=== PATIENT | female | born 1965 | race Caucasian/White ===

== ENCOUNTER 2017-02-06 08:10 | Emergency (ER) | payer BC, OTHER ==
[~2017-02-06] VITALS: Ht 170.2 cm; Wt 91.0 kg
[~2017-02-06 08:10] MED LIST: LEXA20TA PO; PYRI200T4 PO; SULF1TAB47 PO
[2017-02-06 08:14] VITALS: BP 139/86; PULSE 89; RESP 16; TEMP 97.8; O2SAT 99
[2017-02-06] MEDS ORDERED: LEVO.15 PO (08:26)
[2017-02-06] MEDS ORDERED: BUPR4MIS SL (08:26)
--- NOTE | 2017-02-06 08:29 | PD ---
HPI Chief Complaint: Musculoskeletal Complaint Time Seen by Provider: 08:20 Travel History International Travel<30 days: No Contact w/Intl Traveler<30days: No Traveled to known affect area: No History of Present Illness HPI Patient is a 51 year old female who presents to ER with c/o of right sided knee pain. Patient reports that her right knee always "pop's in and pops out." Patient reports that she was walking yesterday and reports that she heard something "pop" in my right knee. Patient reports that she has been unable to ambulate since 3pm last night. Denies any fall/trauma to knee. Reports that she has never really had her knee looked at by a physician. PFSH Past Medical History Diminished Hearing: No Thyroid Disease: Yes Influenza Vaccination: No ?: Not LMP: 1 week ago Menopausal: Yes Past Surgical History Cholecystectomy: Yes (1999) Hysterectomy: Yes (partial but states get menses) Social History Alcohol Use: No Tobacco Use: No Substance Use: No Allergies-Medications (Allergen,Severity, Reaction): Coded Allergies: Tetracycline (Verified Allergy, Mild, 02/06/17) Reported Meds & Prescriptions Reported Meds & Active Scripts Active Reported Synthroid (Levothyroxine Sodium) 150 Mcg Tab 150 Mcg PO DAILY Suboxone Sublingual Film (Buprenorphine-Naloxone Sublingual Film) 4-1 Mg Film 1 Film SL DAILY Unique ID number required: Review of Systems General / Constitutional: No: Fever Eyes: No: Visual changes HENT: No: Headaches Cardiovascular: No: Chest Pain or Discomfort Respiratory: No: Shortness of Breath Gastrointestinal: No: Abdominal Pain Genitourinary: No: Dysuria Musculoskeletal: Positive: Limited ROM (right knee), Pain (right knee) Skin: No Rash Neurologic: No: Weakness Psychiatric: No: Depression Endocrine: No: Polydipsia Hematologic/Lymphatic: No: Easy Bruising Physical Exam Narrative GENERAL: mild distress SKIN: Focused skin assessment warm/dry. HEAD: Atraumatic. Normocephalic. EYES: Pupils equal and round. No scleral icterus. No injection or drainage. ENT: No nasal bleeding or discharge. Mucous membranes pink and moist. NECK: Trachea midline. No JVD. CARDIOVASCULAR: Regular rate and rhythm. No murmur appreciated. RESPIRATORY: No accessory muscle use. Clear to auscultation. Breath sounds equal bilaterally. GASTROINTESTINAL: Abdomen soft, non-tender, nondistended. Hepatic and splenic margins not palpable. MUSCULOSKELETAL: No obvious deformities. No clubbing. No cyanosis. Patient with normal rom to lle, patient with normal rom to right hip/ankle, patient unable to ROM right knee - there is no obvious deformities or open fracture, pulses intact, neurovascularly intact NEUROLOGICAL: Awake and alert. No obvious cranial nerve deficits. Motor grossly within normal limits. Normal speech. PSYCHIATRIC: Appropriate mood and affect; insight and judgment normal. Data Data Last Documented VS Vital Signs Date Time Temp Pulse Resp B/P Pulse Ox O2 Delivery O2 Flow Rate FiO2 02/06/17 08:14 97.8 89 16 139/86 99 Orders Knee, Complete (4vws) (02/06/17 ) Oxycodone-Acetamin 5-325 Mg (Percocet (02/06/17 08:30) MDM Medical Decision Making Medical Screen Exam Complete: Yes Emergency Medical Condition: Yes Interpretation(s) Vital Signs Date Time Temp Pulse Resp B/P Pulse Ox O2 Delivery O2 Flow Rate FiO2 02/06/17 08:14 97.8 89 16 139/86 99 Differential Diagnosis Knee dislocation, knee strain Narrative Course 51-year-old female who presents to emergency room with complaints of right- sided knee pain since 3 PM yesterday. Patient reports history of dislocation and subsequent relocation by itself in the past, reports that she was walking yesterday and began to have pain to her right knee yesterday after she heard a pop. On evaluation, patient unable to range of motion her right knee. X-ray of her knee ordered. X-ray of the knee shows mild osteoarthritis without fracture and with soft tissue swelling. Patient will follow-up with orthopedic surgery and return to emergency room as needed. Encouraged rest, ice, elevation. Diagnosis Primary Impression: Osteoarthritis of right knee Qualified Code: M17.11 - Primary osteoarthritis of right knee Additional Impression: Knee pain, right Qualified Code: M25.561 - Acute pain of right knee Referrals: Brandan Cristobal MD Patient Instructions: Narcotic given in the ED, General Instructions Additional Instructions: Please follow-up with your orthopedic surgeon Return to the emergency room as needed Rest, ice, elevate your right lower extremity Med/Other Pt SpecificInfo: Prescription(s) given Scripts Tramadol 50 Mg Tab50 Mg PO Q6H PRN (PAIN) #10 TAB Ref 0 Prov:Sylvia Hamilton DO 02/06/17 Disposition: 01 DISCHARGE HOME Condition: Stable Sylvia Hamilton DO February 06, 2017 08:29
[2017-02-06] MEDS ORDERED: oxyCODONE/ACETAMINOPHEN 5 MG/325 MG TAB PO ONE (08:30)
--- NOTE | 2017-02-06 09:01 | RADHPO ---
EXAM DATE/TIME: 02/06/2017 08:32 [facility] COMPARISON: No previous studies available for comparison. INDICATIONS : Right knee pain, no known injury. Patient has had problems since she was a child with her right knee popping. MEDICAL HISTORY : None. SURGICAL HISTORY : None. ENCOUNTER: Initial ACUITY: 2 days PAIN SCORE: 10/10 LOCATION: Right knee FINDINGS: Four view examination of the right knee demonstrates no evidence of fracture or dislocation. Bony mi neralization is normal. The articular surfaces are intact. There is mild soft tissue swelling. Mild osteoarthritis. CONCLUSION: 1. Mild osteoarthritis without fracture. 2. Soft tissue swelling. Dada Wells MD on February 06, 2017 at 8:59 Board Certified Radiologist. This report was verified electronically.
[2017-02-06] MEDS ORDERED: TRAM50TA PO (09:09)
[2017-02-18] MEDS ORDERED: OMEP40CA2 PO (12:23)
[2017-02-18] MEDS ORDERED: ACET325T PO (12:23)
== END 2017-02-06 09:23 | disposition home or self-care (01) ==
LOC: PHED 08:10
DX: M17.11 Unilateral primary osteoarthritis, right knee (principal); E07.9 Disorder of thyroid, unspecified; Z79.899 Other long term (current) drug therapy
CPT/HCPCS: 73564; 99283

== ENCOUNTER → 2017-02-18 | Outpatient (CLI) | payer OTHER ==
[~2017-02-18] MED LIST changes: +ACET325T PO; +BUPR4MIS SL; +LEVO.15 PO; -LEXA20TA PO; +OMEP40CA2 PO; -PYRI200T4 PO; -SULF1TAB47 PO; +TRAM50TA PO
[2017-02-18 12:30] LABS: AUTOMATED NEUTROPHIL # 6.6 TH/MM3 (1.8-7.7); BASOPHIL # 0.1 TH/MM3 (0-0.2); BASOPHIL % 0.5 % (0.0-2.0); EOSINOPHIL # 0.2 TH/MM3 (0-0.4); HEMATOCRIT 40.4 % (35.0-46.0); HEMO FLAGS DIFF FINAL; LYMPH % 21.4 % (9.0-44.0); MEAN CELL VOLUME 84.5 FL (80.0-100.0); MEAN CORPUSCULAR HEMOGLOBIN 28.8 PG (27.0-34.0); MEAN CORPUSCULAR HGB CONC 34.1 % (32.0-36.0); MONO % 6.1 % (0.0-8.0); PLATELET COUNT 314 TH/MM3 (150-450); RED BLOOD COUNT 4.78 MIL/MM3 (4.00-5.30); RED CELL DISTRIBUTION WIDTH 12.8 % (11.6-17.2); WHITE BLOOD COUNT 9.5 TH/MM3 (4.0-11.0)
[2017-02-18 13:02] LABS: ANION GAP 6 MEQ/L (5-15); AST (GOT) 23 U/L (15-37); BICARBONATE 30.9 MEQ/L (21.0-32.0); BLOOD UREA NITROGEN 14 MG/DL (7-18); CHLORIDE 103 MEQ/L (98-107); GLOMERULAR FILTRATION RATE 89 ML/MIN (>89); GLUCOSE,FASTING 105 MG/DL (74-99); POTASSIUM 4.4 MEQ/L (3.5-5.1); SODIUM (NA) 140 MEQ/L (136-145)
[2017-02-18 13:05] LABS: ALKALINE PHOSPHATASE 120 U/L (45-117); ALT (GPT) 32 U/L (10-53); TOTAL BILIRUBIN ADULT 0.4 MG/DL (0.2-1.0)
--- NOTE | 2017-02-19 14:49 | EKG ---
Date Performed: 02/18/2017 Time Performed: 12:14:59 PTAGE: 51 years EKG: Sinus rhythm NORMAL ECG NO PREVIOUS TRACING DOCTOR: Ray Gonzales Interpretating Date/Time 02/19/2017 14:48:27
== END ==
LOC: CPRE 11:51
PROVIDERS: ATTEND Orthopaedic Surgery
DX: Z01.810 Encounter for preprocedural cardiovascular examination (principal); Z01.812 Encounter for preprocedural laboratory examination; S83.252D Bucket-handle tear of lateral meniscus, current injury, left knee, subsequent encounter
CPT/HCPCS: 36415; 80053; 85025; 93005